=== PATIENT | male | born 1960 | race Hispanic/Latino ===

== ENCOUNTER 2016-07-10 06:09 | Emergency (ER) | payer OTHER ==
[2016-07-10] MEDS ORDERED: NORMODYNE IV ONE ×2 (06:45→10:15)
[2016-07-10] MEDS ORDERED: ZOFRAN IV ONE ×2 (06:47→10:15)
--- NOTE | 2016-07-10 07:14 | XRay Report ---
AP CHEST: HISTORY: Hypertension No comparison. Borderline to mild cardiomegaly is suspected. Normal pulmonary vascularity. The lungs are clear. No evidence for pneumonia, pleural effusion or pneumothorax. Normal bony structures. IMPRESSION: Borderline to mild cardiomegaly. Lungs clear.
[2016-07-10 07:17] LABS: Hematocrit 46.2 % (35.5-45.6); Hemoglobin 15.3 gm/dl (11.8-15.2); Mean Corpuscular HGB Conc 33 % (32-34); Mean Corpuscular Hemoglobin 29 pg (28-32); Mean Corpuscular Volume 89 fl (84-94); Platelet Count 210 K/mm3 (140-440); Red Blood Count 5.23 M/mm3 (3.65-5.03); Red Cell Distribution Width 14.2 % (13.2-15.2)
[2016-07-10 07:30] LABS: INR 0.96 (0.87-1.13); Partial Thromboplastin Time 26.6 Sec. (24.2-36.6)
[2016-07-10 08:04] LABS: Anion Gap 18 mmol/L; Blood Urea Nitrogen 14 mg/dL (9-20); Calcium 8.9 mg/dL (8.4-10.2); Carbon Dioxide 22 mmol/L (22-30); Chloride 100.8 mmol/L (98-107); Creatine Kinase 129 units/L (55-170); Glucose 124 mg/dL (75-100); Sodium 137 mmol/L (137-145)
[2016-07-10 08:28] LABS: Basophils % (Manual) 0 % (0.0-1.8); Blastocytes % (Manual) 0 %; Diff Status Complete; Eosinophils % (Manual) 0 % (0.0-4.3); RBC Morphology Normal
[2016-07-10 08:37] LABS: Urine Drugs of Abuse Note Disclamer
[2016-07-10 08:37] LABS: Alanine Aminotransferase 18 units/L (7-56); Alkaline Phosphatase 119 units/L (35-129); Total Protein 7.9 g/dL (6.3-8.2)
[2016-07-10 08:38] LABS: Bilirubin,Direct < 0.2 mg/dL (0-0.2)
[2016-07-10 08:50] LABS: Bacteria,Urine 1+ /HPF (Negative); Bilirubin,Urine NEG (Negative); Blood,Urine MOD (Negative); Ketones,Urine NEG (Negative); Leukocyte Esterase,Urine NEG (Negative); Mucus,Urine FEW /HPF; Nitrite,Urine NEG (Negative); Protein,Urine <15 mg/dL mg/dL (Negative); Urobilinogen,Urine < 2.0 mg/dL (<2.0)
[2016-07-10] MEDS ORDERED: MORPHINE IV ONE (10:15)
[2016-07-10] MEDS ORDERED: PROTONIX IV ONE (10:15)
[2016-07-10] MEDS ORDERED: NACL ONE (11:44)
--- NOTE | 2016-07-10 12:51 | Cat Scan Report ---
CT ANGIOPLASTY CT ANGIOGRAM ABDOMEN AND PELVIS HISTORY: Chest pain, abdominal pain, severe hypertension. TECHNIQUE: Helical CT following IV contrast. Sagittal and coronal reformatted images. Rotational MIP images. FINDINGS: The thoracic and abdominal aorta are intact. There is no evidence for dissection, aneurysm or stenosis. There are mild partially calcified plaques in the distal aorta. The bilateral iliac systems are also widely patent with less than 20% stenosis. The celiac axis, SMA, ANA, single left renal artery and dual right renal arteries are widely patent with less than 20% stenosis. Pulmonary embolus protocol was not performed but there is no large central pulmonary embolus. Heart size is normal. No pericardial effusion. No mediastinal mass or adenopathy. The lungs are clear. No pleural effusion or pneumothorax. The liver, biliary system, pancreas, spleen, kidneys and adrenal glands are unremarkable. The bowel loops are normal caliber and wall thickness. Appendectomy changes are suspected. IMPRESSION: Unremarkable CTA of the chest, abdomen and pelvis. No evidence for aneurysm, stenosis or dissection. Minor atherosclerotic plaques in the abdominal aorta.
--- NOTE | 2016-07-10 14:01 | Emergency Department Report ---
ED General Adult HPI - General Chief complaint: High BP Stated complaint: STOMACH PAIN Time Seen by Provider: 07/10/16 06:44 Source: patient Mode of arrival: Ambulatory Limitations: No Limitations - History of Present Illness Initial comments: Patient complains of vague periumbilical and epigastric discomfort since midnight. He has some nausea but no vomiting or change in bowel movements. They complain of some mild headache. He had no difficulty in speaking walking coordination or focal weakness or numbness. The headache resolved. The abdominal pain is only mild residual. He denied chest pain shortness of breath sweating or dizziness. He admits that he has been told his blood pressure was elevated in the past but has not seen a doctor for some time. He states he has not been previously prescribed medicine for hypertension. He denies any cardiac history. -: Gradual, hour(s) Location: abdomen Radiation: non-radiation Severity scale (0 -10): 3 Quality: aching Consistency: intermittent Improves with: none Worsens with: none Associated Symptoms: headaches Treatments Prior to Arrival: none - Related Data Home Medications Medication Instructions Recorded Confirmed Last Taken Aspirin/Acetaminophen/Caffeine 1 pack PO PRN 07/10/16 07/10/16 Unknown [[employer] Ex-Str Powder Packet] Previous Rx's Medication Instructions Recorded Last Taken Type Hydralazine HCl [Apresoline TAB] 50 mg PO Q12H #60 tablet 07/10/16 Unknown Rx Lansoprazole [Prevacid] 15 mg PO BID #60 cap 07/10/16 Unknown Rx Lisinopril/Hydrochlorothiazide 1 tab PO QDAY #30 tab 07/10/16 Unknown Rx [Zestoretic 20-12.5 mg] traMADol [Ultram] 50 mg PO Q6HR PRN #10 tablet 07/10/16 Unknown Rx Allergies Allergy/AdvReac Type Severity Reaction Status Date / Time No Known Allergies Allergy Verified 07/10/16 06:21 ED Review of Systems ROS: Stated complaint: STOMACH PAIN Other details as noted in HPI Constitutional: denies: chills, fever Eyes: denies: eye pain, eye discharge, vision change ENT: denies: ear pain, throat pain Respiratory: denies: cough, shortness of breath, wheezing Cardiovascular: denies: chest pain, palpitations Endocrine: no symptoms reported Gastrointestinal: abdominal pain, nausea. denies: diarrhea Genitourinary: denies: urgency, dysuria Musculoskeletal: denies: back pain, joint swelling, arthralgia Skin: denies: rash, lesions Neurological: headache (now resolved). denies: weakness, paresthesias Psychiatric: denies: anxiety, depression Hematological/Lymphatic: denies: easy bleeding, easy bruising ED Past Medical Hx - Past Medical History Previous Medical History?: No - Surgical History Past Surgical History?: No - Social History Smoking Status: Current Every Day Smoker Substance Use Type: Alcohol, Marijuana - Medications Home Medications: Home Medications Medication Instructions Recorded Confirmed Last Taken Type Aspirin/Acetaminophen/Caffeine 1 pack PO PRN 07/10/16 07/10/16 Unknown History [[employer] Ex-Str Powder Packet] Hydralazine HCl [Apresoline TAB] 50 mg PO Q12H #60 tablet 07/10/16 Unknown Rx Lansoprazole [Prevacid] 15 mg PO BID #60 cap 07/10/16 Unknown Rx Lisinopril/Hydrochlorothiazide 1 tab PO QDAY #30 tab 07/10/16 Unknown Rx [Zestoretic 20-12.5 mg] traMADol [Ultram] 50 mg PO Q6HR PRN #10 tablet 07/10/16 Unknown Rx ED Physical Exam - General Limitations: No Limitations General appearance: alert, in no apparent distress - Head Head exam: Present: atraumatic, normocephalic - Eye Eye exam: Present: normal appearance. Absent: scleral icterus - ENT ENT exam: Present: normal exam, mucous membranes moist - Neck Neck exam: Present: normal inspection. Absent: tenderness, meningismus - Respiratory Respiratory exam: Present: normal lung sounds bilaterally. Absent: respiratory distress - Cardiovascular Cardiovascular Exam: Present: regular rate, normal rhythm. Absent: systolic murmur, diastolic murmur, rubs, gallop - GI/Abdominal GI/Abdominal exam: Present: soft, normal bowel sounds. Absent: distended, tenderness, guarding, rebound, rigid, diminished bowel sounds - Rectal Rectal exam: Present: deferred - Extremities Exam Extremities exam: Present: normal inspection - Back Exam Back exam: Present: normal inspection - Neurological Exam Neurological exam: Present: alert, oriented X3, CN II-XII intact. Absent: motor sensory deficit - Psychiatric Psychiatric exam: Present: normal affect, normal mood - Skin Skin exam: Present: warm, dry, intact, normal color. Absent: rash ED Course Vital Signs 07/10/16 07/10/16 07/10/16 06:21 06:35 06:41 Temperature 98.3 F Pulse Rate 78 79 Respiratory 20 11 L 22 Rate Blood Pressure 239/128 224/110 O2 Sat by Pulse 98 96 Oximetry 07/10/16 07/10/16 07/10/16 06:45 06:51 06:55 Temperature Pulse Rate 74 74 73 Respiratory 15 13 14 Rate Blood Pressure 196/95 196/95 224/110 O2 Sat by Pulse 97 95 95 Oximetry 07/10/16 07/10/16 07/10/16 07:01 07:05 07:11 Temperature Pulse Rate 75 74 71 Respiratory 13 20 17 Rate Blood Pressure 189/96 189/96 172/90 O2 Sat by Pulse 96 96 96 Oximetry 07/10/16 07/10/16 07/10/16 07:15 07:25 07:30 Temperature Pulse Rate 72 71 Respiratory 18 18 18 Rate Blood Pressure 172/90 179/94 O2 Sat by Pulse 95 95 96 Oximetry 07/10/16 07/10/16 07/10/16 08:00 08:21 08:25 Temperature Pulse Rate 71 72 70 Respiratory 17 16 16 Rate Blood Pressure 204/103 204/103 169/95 O2 Sat by Pulse 96 95 97 Oximetry 07/10/16 07/10/16 07/10/16 08:27 08:29 08:30 Temperature Pulse Rate 69 69 69 Respiratory 17 15 16 Rate Blood Pressure 169/95 169/95 178/95 O2 Sat by Pulse 94 94 96 Oximetry 07/10/16 07/10/16 07/10/16 08:31 08:33 08:35 Temperature Pulse Rate 70 71 70 Respiratory 17 16 17 Rate Blood Pressure 178/95 178/95 178/95 O2 Sat by Pulse 95 96 95 Oximetry 07/10/16 07/10/16 07/10/16 08:37 08:39 08:41 Temperature Pulse Rate 72 71 76 Respiratory 15 17 14 Rate Blood Pressure 178/95 178/95 178/95 O2 Sat by Pulse 95 94 96 Oximetry 07/10/16 07/10/16 07/10/16 08:43 08:45 08:47 Temperature Pulse Rate 70 70 73 Respiratory 15 15 14 Rate Blood Pressure 178/95 178/95 178/95 O2 Sat by Pulse 95 95 96 Oximetry 07/10/16 07/10/16 07/10/16 08:49 08:51 09:00 Temperature Pulse Rate 69 69 68 Respiratory 18 16 16 Rate Blood Pressure 178/95 178/95 159/97 O2 Sat by Pulse 95 94 96 Oximetry 07/10/16 07/10/16 07/10/16 10:00 10:22 10:25 Temperature Pulse Rate 74 68 Respiratory 16 16 Rate Blood Pressure 203/102 203/97 O2 Sat by Pulse 96 Oximetry 07/10/16 07/10/16 07/10/16 10:52 11:00 13:41 Temperature Pulse Rate 72 Respiratory 16 16 Rate Blood Pressure 183/91 172/85 O2 Sat by Pulse 94 Oximetry - Reevaluation(s) Reevaluation #1: Patient was largely comfortable in the emergency department. He was given analgesia 1. Repeatedly stated that he felt like he could go home. However his blood pressure was a bit labile. Finally we were achieved a reasonable target and he was ultimately released. His CT angiogram showed no abnormalities of significance. He was discharged in stable condition. The importance of follow-up was emphasized. He never complained of any respiratory symptoms nor chest or back pain. 07/10/16 14:00 ED Medical Decision Making - Lab Data Result diagrams: 07/10/16 06:57 07/10/16 06:57 Laboratory Results - last 24 hr 07/10/16 07/10/16 07/10/16 06:55 06:57 06:57 WBC 11.0 RBC 5.23 H Hgb 15.3 H Hct 46.2 H MCV 89 MCH 29 MCHC 33 RDW 14.2 Plt Count 210 Add Manual Diff Complete Total Counted 100 Seg Neutrophils % Rivet Flunky Seg Neuts % (Manual) 93.0 H Band Neutrophils % 0 Lymphocytes % (Manual) 6.0 L Reactive Lymphs % (Man) 0 Monocytes % (Manual) 1.0 Eosinophils % (Manual) 0 Basophils % (Manual) 0 Metamyelocytes % 0 Myelocytes % 0 Promyelocytes % 0 Blast Cells % 0 Nucleated RBC % Not Reportable Seg Neutrophils # Man 10.2 H Band Neutrophils # 0.0 Lymphocytes # (Manual) 0.7 L Abs React Lymphs (Man) 0.0 Monocytes # (Manual) 0.1 Eosinophils # (Manual) 0.0 Basophils # (Manual) 0.0 Metamyelocytes # 0.0 Myelocytes # 0.0 Promyelocytes # 0.0 Blast Cells # 0.0 WBC Morphology Not Reportable Hypersegmented Neuts Not Reportable Hyposegmented Neuts Not Reportable Hypogranular Neuts Not Reportable Smudge Cells Not Reportable Toxic Granulation Not Reportable Toxic Vacuolation Not Reportable Dohle Bodies Not Reportable Pelger-Huet Anomaly Not Reportable Juliana Rods Not Reportable Platelet Estimate Appears normal Clumped Platelets Not Reportable Plt Clumps, EDTA Not Reportable Large Platelets Not Reportable Giant Platelets Not Reportable Platelet Satelliting Not Reportable Plt Morphology Comment Not Reportable RBC Morphology Normal Dimorphic RBCs Not Reportable Polychromasia Not Reportable Hypochromasia Not Reportable Poikilocytosis Not Reportable Anisocytosis Not Reportable Microcytosis Not Reportable Macrocytosis Not Reportable Spherocytes Not Reportable Pappenheimer Bodies Not Reportable Sickle Cells Not Reportable Target Cells Not Reportable Tear Drop Cells Not Reportable Ovalocytes Not Reportable Helmet Cells Not Reportable [place] Bodies Not Reportable [place] Rings Not Reportable Jan Cells Not Reportable Bite Cells Not Reportable Crenated Cell Not Reportable Elliptocytes Not Reportable Acanthocytes (Spur) Not Reportable Rouleaux Not Reportable Hemoglobin C Crystals Not Reportable Schistocytes Not Reportable Malaria parasites Not Reportable Alexx Bodies Not Reportable Hem Pathologist Commnt No PT INR APTT Sodium 137 Potassium 4.0 Chloride 100.8 Carbon Dioxide 22 Anion Gap 18 BUN 14 Creatinine 0.8 Estimated GFR > 60 BUN/Creatinine Ratio 17.50 Glucose 124 H Calcium 8.9 Magnesium 1.90 Total Bilirubin Direct Bilirubin AST ALT Alkaline Phosphatase Total Creatine Kinase 129 CK-MB (CK-2) 3.0 CK-MB (CK-2) Rel Index 2.3 Troponin T < 0.010 NT-Pro-B Natriuret Pep Total Protein Albumin Albumin/Globulin Ratio Lipase 28 Urine Color Urine Turbidity Urine pH Ur Specific [place] Urine Protein Urine Glucose (UA) Urine Ketones Urine Blood Urine Nitrite Urine Bilirubin Urine Urobilinogen Ur Leukocyte Esterase Urine WBC (Auto) Urine RBC (Auto) Urine Bacteria (Auto) Urine Mucus Urine Opiates Screen Urine Methadone Screen Ur Barbiturates Screen Ur Phencyclidine Scrn Ur Amphetamines Screen U Benzodiazepines Scrn Urine Cocaine Screen U Marijuana (THC) Screen Drugs of Abuse Note 07/10/16 07/10/16 07/10/16 06:57 06:57 08:30 WBC RBC Hgb Hct MCV MCH MCHC RDW Plt Count Add Manual Diff Total Counted Seg Neutrophils % Seg Neuts % (Manual) Band Neutrophils % Lymphocytes % (Manual) Reactive Lymphs % (Man) Monocytes % (Manual) Eosinophils % (Manual) Basophils % (Manual) Metamyelocytes % Myelocytes % Promyelocytes % Blast Cells % Nucleated RBC % Seg Neutrophils # Man Band Neutrophils # Lymphocytes # (Manual) Abs React Lymphs (Man) Monocytes # (Manual) Eosinophils # (Manual) Basophils # (Manual) Metamyelocytes # Myelocytes # Promyelocytes # Blast Cells # WBC Morphology Hypersegmented Neuts Hyposegmented Neuts Hypogranular Neuts Smudge Cells Toxic Granulation Toxic Vacuolation Dohle Bodies Pelger-Huet Anomaly Juliana Rods Platelet Estimate Clumped Platelets Plt Clumps, EDTA Large Platelets Giant Platelets Platelet Satelliting Plt Morphology Comment RBC Morphology Dimorphic RBCs Polychromasia Hypochromasia Poikilocytosis Anisocytosis Microcytosis Macrocytosis Spherocytes Pappenheimer Bodies Sickle Cells Target Cells Tear Drop Cells Ovalocytes Helmet Cells [place] Bodies [place] Rings Jan Cells Bite Cells Crenated Cell Elliptocytes Acanthocytes (Spur) Rouleaux Hemoglobin C Crystals Schistocytes Malaria parasites Alexx Bodies Hem Pathologist Commnt PT 12.7 INR 0.96 APTT 26.6 Sodium Potassium Chloride Carbon Dioxide Anion Gap BUN Creatinine Estimated GFR BUN/Creatinine Ratio Glucose Calcium Magnesium Total Bilirubin 0.30 Direct Bilirubin < 0.2 AST 16 ALT 18 Alkaline Phosphatase 119 Total Creatine Kinase CK-MB (CK-2) CK-MB (CK-2) Rel Index Troponin T NT-Pro-B Natriuret Pep 94.37 Total Protein 7.9 Albumin 4.0 Albumin/Globulin Ratio 1.0 Lipase Urine Color Straw Urine Turbidity Clear Urine pH 6.0 Ur Specific [place] 1.009 Urine Protein <15 mg/dl Urine Glucose (UA) Neg Urine Ketones Neg Urine Blood Mod Urine Nitrite Neg Urine Bilirubin Neg Urine Urobilinogen < 2.0 Ur Leukocyte Esterase Neg Urine WBC (Auto) 1.0 Urine RBC (Auto) 4.0 Urine Bacteria (Auto) 1+ Urine Mucus Few Urine Opiates Screen Urine Methadone Screen Ur Barbiturates Screen Ur Phencyclidine Scrn Ur Amphetamines Screen U Benzodiazepines Scrn Urine Cocaine Screen U Marijuana (THC) Screen Drugs of Abuse Note 07/10/16 08:30 WBC RBC Hgb Hct MCV MCH MCHC RDW Plt Count Add Manual Diff Total Counted Seg Neutrophils % Seg Neuts % (Manual) Band Neutrophils % Lymphocytes % (Manual) Reactive Lymphs % (Man) Monocytes % (Manual) Eosinophils % (Manual) Basophils % (Manual) Metamyelocytes % Myelocytes % Promyelocytes % Blast Cells % Nucleated RBC % Seg Neutrophils # Man Band Neutrophils # Lymphocytes # (Manual) Abs React Lymphs (Man) Monocytes # (Manual) Eosinophils # (Manual) Basophils # (Manual) Metamyelocytes # Myelocytes # Promyelocytes # Blast Cells # WBC Morphology Hypersegmented Neuts Hyposegmented Neuts Hypogranular Neuts Smudge Cells Toxic Granulation Toxic Vacuolation Dohle Bodies Pelger-Huet Anomaly Juliana Rods Platelet Estimate Clumped Platelets Plt Clumps, EDTA Large Platelets Giant Platelets Platelet Satelliting Plt Morphology Comment RBC Morphology Dimorphic RBCs Polychromasia Hypochromasia Poikilocytosis Anisocytosis Microcytosis Macrocytosis Spherocytes Pappenheimer Bodies Sickle Cells Target Cells Tear Drop Cells Ovalocytes Helmet Cells [place] Bodies [place] Rings [place] Cells Bite Cells Crenated Cell Elliptocytes Acanthocytes (Spur) Rouleaux Hemoglobin C Crystals Schistocytes Malaria parasites Alexx Bodies Hem Pathologist Commnt PT INR APTT Sodium Potassium Chloride Carbon Dioxide Anion Gap BUN Creatinine Estimated GFR BUN/Creatinine Ratio Glucose Calcium Magnesium Total Bilirubin Direct Bilirubin AST ALT Alkaline Phosphatase Total Creatine Kinase CK-MB (CK-2) CK-MB (CK-2) Rel Index Troponin T NT-Pro-B Natriuret Pep Total Protein Albumin Albumin/Globulin Ratio Lipase Urine Color Urine Turbidity Urine pH Ur Specific [place] Urine Protein Urine Glucose (UA) Urine Ketones Urine Blood Urine Nitrite Urine Bilirubin Urine Urobilinogen Ur Leukocyte Esterase Urine WBC (Auto) Urine RBC (Auto) Urine Bacteria (Auto) Urine Mucus Urine Opiates Screen Presumptive negative Urine Methadone Screen Presumptive negative Ur Barbiturates Screen Presumptive negative Ur Phencyclidine Scrn Presumptive negative Ur Amphetamines Screen Presumptive negative U Benzodiazepines Scrn Presumptive negative Urine Cocaine Screen Presumptive negative U Marijuana (THC) Screen Presumptive positive Drugs of Abuse Note Disclamer - EKG Data -: EKG Interpreted by [place] EKG shows normal: sinus rhythm, axis, intervals, QRS complexes, ST-T waves Rate: normal - EKG Data Interpretation: normal EKG - Radiology Data Radiology results: report reviewed interpreted by me: CT the chest abdomen pelvis showed no acute process Critical care attestation.: If time is entered above; I have spent that time in minutes in the direct care of this critically ill patient, excluding procedure time. ED Disposition Clinical Impression: Uncontrolled hypertension Abdominal pain Qualifiers: Abdominal location: upper abdomen, unspecified Qualified Code(s): R10.10 - Upper abdominal pain, unspecified Disposition: DISCHARGED TO HOME OR SELFCARE Is pt being admited?: No Does the pt Need Aspirin: No Condition: Stable Instructions: Hypertension (ED), Abdominal Pain (ED) Additional Instructions: Follow-up with primary care provider. Pressure was a substantially elevated and will require close follow-up. Return to the emergency department any acute change recurrent abdominal pain or additional symptoms. Prescriptions: Hydralazine HCl [Apresoline TAB] 50 mg PO Q12H #60 tablet Lansoprazole [Prevacid] 15 mg PO BID #60 cap Lisinopril/Hydrochlorothiazide [Zestoretic 20-12.5 mg] 1 tab PO QDAY #30 tab traMADol [Ultram] 50 mg PO Q6HR PRN #10 tablet PRN Reason: Pain Referrals: PRIMARY CARE, [Primary Care Provider] - 3-5 Days Time of Disposition: 14:18
[2016-07-10 14:30] VITALS: BP 164/86
== END 2016-07-10 14:30 | disposition home or self-care (01) ==
LOC: ED 06:09
DX: I10 Essential (primary) hypertension (principal); R10.10 Upper abdominal pain, unspecified; F17.200 Nicotine dependence, unspecified, uncomplicated; F12.10 Cannabis abuse, uncomplicated; Z79.82 Long term (current) use of aspirin
CPT/HCPCS: 36415; 71010; 71275; 74174; 80048; 80074; 80307; 81001; 82550; 82553; 83690; 83735; 83880; 84484; 85007; 85025; 85610; 85730; 93005; 93010; 96374; 96375; 96376; 99285; C9113; J2270; J2405; Q9967